=== PATIENT | female | born 1985 | race Caucasian/White ===

== ENCOUNTER 2019-01-11 20:17 | Emergency (ER) | payer BC ==
[~2019-01-11] VITALS: Ht 157.5 cm; Wt 75.7 kg
[2019-01-11 20:44] VITALS: Ht 157.5 cm; Wt 75.7 kg
[2019-01-11 22:22] VITALS: BP 114/80
== END 2019-01-11 22:22 | disposition home or self-care (01) ==
LOC: ED 20:17
DX: S16.1XXA Strain of muscle, fascia and tendon at neck level, initial encounter (principal); S39.012A Strain of muscle, fascia and tendon of lower back, initial encounter; V49.9XXA Car occupant (driver) (passenger) injured in unspecified traffic accident, initial encounter; Y93.I9 Activity, other involving external motion; Y92.413 State road as the place of occurrence of the external cause; Y99.8 Other external cause status